=== PATIENT | male | born 1995 | race Two or more races ===

== ENCOUNTER → 2023-06-25 | Emergency (ER) | payer MEDICAID ==
[~2023-06-25] VITALS: Ht 160 cm; Wt 81.6 kg
[~2023-06-25] MED LIST: CARI350T PO; HYDROCODONE/APAP 5/325MG TABLET ONE; HYDROCODONE/APAP 5/325MG TABLET PO ONE
[2023-06-25 08:23] VITALS: BP 153/95; TEMP 98.9; O2SAT 100
== END | disposition home or self-care (01) ==
LOC: EDBD 06:45 → ER 06:45
DX: S33.5XXA Sprain of ligaments of lumbar spine, initial encounter (principal); Z60.2 Problems related to living alone; V89.2XXA Person injured in unspecified motor-vehicle accident, traffic, initial encounter; Y93.89 Activity, other specified; Y92.89 Other specified places as the place of occurrence of the external cause; Y99.8 Other external cause status
CPT/HCPCS: 72100-TC